=== PATIENT | female | born 1980 | race Caucasian/White ===

== ENCOUNTER → 2017-11-25 | Outpatient (CLI) | payer OTHER ==
[2017-11-25 18:46] LABS: ALBUMIN 4.1 gm/dl (3.4-5.0); ALT/SGPT 23 U/L (12-78); BLOOD UREA NITROGEN 14 mg/dl (7-18); CALCIUM 9.2 mg/dl (8.5-10.1); CARBON DIOXIDE 27 mmol/L (21-32); CREATININE 0.79 mg/dl (0.60-1.20); GLUCOSE 93 mg/dl (70-99); POTASSIUM 3.9 mmol/L (3.5-5.1); SODIUM 136 mmol/L (136-145)
[2017-11-25 18:49] LABS: ALKALINE PHOSPHATASE 49 U/L (45-117); AST/SGOT 13 U/L (15-37); TOTAL PROTEIN 7.3 gm/dl (6.4-8.2)
[2017-11-26 06:26] LABS: HEMOGLOBIN A1C 5.5 % (4.5-5.6)
== END | disposition home or self-care (01) ==
LOC: C.LABMFLN 17:04
PROVIDERS: ATTEND Family Medicine
DX: R73.03 Prediabetes (principal); R63.5 Abnormal weight gain; E66.3 Overweight